=== PATIENT | female | born 1985 | race Caucasian/White ===

== ENCOUNTER 2024-05-21 13:52 | Emergency (ER) | payer SELFPAY ==
[~2024-05-21] VITALS: Ht 165.1 cm; Wt 70.0 kg
[2024-05-21 13:56] VITALS: O2SAT 99
[2024-05-21] MEDS: ONDANSETRON 4MG ODT PO ONE (18:12)
[2024-05-21] MEDS: ACETAMINOPHEN 325MG TABLET PO ONE (18:12)
[2024-05-21] MEDS: KETOROLAC 30MG/ML VIAL IM ONE (18:12)
[2024-05-21 18:55] LABS: HEMATOCRIT. 38.1 % (36.0-48.0); MEAN CORPUSCULAR HGB CONC 34.1 g/dL (31.0-37.0); MEAN CORPUSCULAR VOLUME 84.9 fL (81.0-99.0); MEAN PLATELET VOLUME 8.8 fl (7.4-10.4); PLATELET 240 x1000/uL (130-400); RED BLOOD CELL COUNT 4.49 mill/uL (4.2-5.4); RED CELL DISTRIBUTION WIDTH 15.4 % (11.6-14.6); WHITE BLOOD COUNT 8.8 x1000/uL (4.5-11.0)
[2024-05-21 18:57] LABS: DIFFERENTIAL COMMENT 1
[2024-05-21 19:08] LABS: CHLORIDE 107 mEq/L (98-107); POTASSIUM 3.4 mEq/L (3.5-5.1); SODIUM 139 mEq/L (136-145)
[2024-05-21 19:09] LABS: CALCIUM 9.3 mg/dL (8.7-10.4); CARBON DIOXIDE 25 mEq/L (21-32)
[2024-05-21 19:12] LABS: HCG SCREEN NEGATIVE
[2024-05-21 19:14] LABS: CREATININE 0.8 mg/dL (0.6-1.0); GLUCOSE 101 mg/dL (70-105); UREA NITROGEN BLOOD 15 mg/dL (9-23)
[2024-05-21 19:16] LABS: ALANINE AMINOTRANSFERASE 13 IU/L (10-49); ALBUMIN 4.3 g/dL (3.2-4.8); ASPARTATE AMINOTRANSFERASE 17 IU/L (<34); BILIRUBIN TOTAL 0.9 mg/dL (0.1-1.0)
[2024-05-21 19:17] LABS: PROTEIN TOTAL 6.8 g/dL (6.0-8.3)
[2024-05-21 20:38] LABS: TROPONIN I HIGH SENSITIVITY < 4 ng/L (3.0-34)
[2024-05-21 20:54] LABS: PLATELET ESTIMATE NORMAL
[2024-05-21 21:05] VITALS: BP 93/51; PULSE 91; RESP 16; TEMP 36.94740; O2SAT 95
[2024-05-21] MEDS ORDERED: ONDA-239 PO (21:16)
== END 2024-05-21 21:13 | disposition home or self-care (01) ==
LOC: ER 14:00
DX: B34.9 Viral infection, unspecified (principal); Z20.822 Contact with and (suspected) exposure to COVID-19
CPT/HCPCS: 99285; 71045; 87426; 80053; 84703; 85025; 84484; 87804 ×2; 36415; 93005; 96372; Q0162; J1885